=== PATIENT | female | born 1975 | race Two or more races ===

== ENCOUNTER 2023-08-20 12:22 | Emergency (ER) | payer MEDICAID ==
[2023-08-20] MEDS: Orphenadrine 60 MG/2 ML Inj IM ONE (13:52)
== END 2023-08-20 13:50 | disposition home or self-care (01) ==
LOC: JD.ED 12:22
DX: M54.2 Cervicalgia (principal); E11.9 Type 2 diabetes mellitus without complications; E78.00 Pure hypercholesterolemia, unspecified; Z86.16 Personal history of COVID-19; Z79.899 Other long term (current) drug therapy; Z79.84 Long term (current) use of oral hypoglycemic drugs; Z79.4 Long term (current) use of insulin
CPT/HCPCS: 96372; 99283; J2360; 99284